=== PATIENT | male | born 1940 | race African-American/Black ===

== ENCOUNTER 2016-08-01 13:22 | Emergency (ER) | payer MEDICARE ==
[~2016-08-01] VITALS: Ht 172.7 cm; Wt 82.0 kg
[~2016-08-01 13:22] MED LIST: ALLOPURINOL300 MG PO; AMLOD/BENAZP1 CA3 PO; FLUTICASONE50 MCG; LEVAQUIN500 MG OR; PRILOSEC20 MG PO; TUSSIONEX1 ML OR
[2016-08-01 14:10] LABS: HEMOGLOBIN 15.7 g/dl (14.0-18.0); MEAN CELL VOLUME 91.3 fL CALC (80.0-100.0); MEAN CORPUSCULAR HGB 31.8 pG CALC (26.0-32.0); MEAN CORPUSCULAR HGB CONC 34.9 g/L CALC (32.0-36.0); NEUT# 2.32 thou/uL (1.82-7.42); RED BLOOD COUNT 4.93 mill/uL (4.70-6.10); RED CELL DISTRI WIDTH 13.3 % (11.5-15.5)
[2016-08-01 14:21] LABS: ALBUMIN 4.2 g/dL (3.2-5.0); ALKALINE PHOSPHATASE 66 u/l (38-126); ANION GAP 16 (6-22 (CALC)); BILIRUBIN, TOTAL 0.5 mg/dL (0.0-1.4); BUN 15 mg/dL (8-23); BUN/CREATININE RATIO 18 (12-20 (CALC)); CALCIUM 10.1 mg/dL (8.4-10.2); CARBON DIOXIDE 24 mmol/l (22-30); CHLORIDE 95 mmol/l (95-108); CREATININE 0.9 mg/dL (0.7-1.3); GFR > 60 ML/MIN (>=60 (CALC)); GFR FOR AFR.AMER. > 60 ML/MIN (>=60 (CALC)); GLUCOSE 83 mg/dL (82-115); POTASSIUM 4.6 mmol/l (3.5-5.1); SGOT/AST 36 u/l (19-48); SGPT/ALT 35 u/l (11-66); SODIUM 130 mmol/l (137-146); TOTAL PROTEIN 8.1 g/dL (6.3-8.2)
[2016-08-01] MEDS ORDERED: AMLODIPINE10 MG PO (15:03)
[2016-08-01] MEDS ORDERED: CIMETIDINE400 M1 PO (15:03)
[2016-08-01] MEDS ORDERED: PREDNISONE10 MG PO (15:03)
[2016-08-01] MEDS ORDERED: BENADRYL 50MG C50 MG PO (15:03)
[2016-08-01 15:13] VITALS: BP 137/94
== END 2016-08-01 15:23 | disposition home or self-care (01) ==
LOC: ED 13:22
PROVIDERS: Emergency Medicine
DX: T78.3XXA Angioneurotic edema, initial encounter (principal); T50.995A Adverse effect of other drugs, medicaments and biological substances, initial encounter; Y92.009 Unspecified place in unspecified non-institutional (private) residence as the place of occurrence of the external cause